=== PATIENT | male | born 1945 | race Caucasian/White ===

== ENCOUNTER → 2020-05-16 | Outpatient (CLI) | payer MEDICARE, BC ==
--- NOTE | 2020-05-16 15:56 | MR ---
EXAMINATION TYPE: MR brain wo con DATE OF EXAM: 05/16/2020 3:47 PM COMPARISON: NONE HISTORY: Memory loss, bilateral hearing loss. FINDINGS: The ventricles, basal cisterns and sulci overlying the cerebral convexities are mildly enlarged. There is evidence of mild periventricular white matter ischemic demyelination. Remote deep white matter insults are also noted. No acute edema is seen on diffusion weighted imaging. There is no evidence for midline shift or mass effect. Acute intracranial hemorrhage or extra-axial collection is not evident. The paranasal sinuses and mastoid air cells are well-aerated. IMPRESSION: Age-related atrophic and chronic small vessel ischemic change. No acute intracranial process at this time.
== END | disposition home or self-care (01) ==
LOC: RADMRIMAIN 14:58
PROVIDERS: ATTEND Family Medicine
DX: I67.82 Cerebral ischemia (principal)
CPT/HCPCS: 70551

== ENCOUNTER → 2022-06-19 | Outpatient (CLI) | payer MEDICARE, BC ==
[2022-06-19 16:14] LABS: Partial Thromboplastin Time 25.3 sec (22.0-30.0); Prothrombin Time 10.7 sec (9.0-12.0)
[2022-06-19 21:05] LABS: C Reactive Protein <0.30 mg/dL (0.00-0.80)
[2022-06-20 08:52] LABS: Protein, Total 6.4 g/dL (6.2-8.2)
[2022-06-20 11:29] LABS: Lyme IgG/IgM 0.12 Index
[2022-06-20 18:21] LABS: Albumin 3.93 g/dL (3.80-4.90); Gamma Globulin 0.63 g/dL (0.70-1.50)
== END | disposition home or self-care (01) ==
LOC: LABWHC1 14:30
PROVIDERS: ATTEND Psychiatry & Neurology Neurology
DX: G90.09 Other idiopathic peripheral autonomic neuropathy (principal); R41.3 Other amnesia; R73.9 Hyperglycemia, unspecified
CPT/HCPCS: 36415; 82607; 82747; 83036; 83090; 84165; 84439; 84443; 85610; 85652; 85730; 86038; 86140; 86618

== ENCOUNTER → 2022-07-11 | Outpatient (CLI) | payer MEDICARE, BC ==
--- NOTE | 2022-07-12 08:21 | MR ---
EXAMINATION TYPE: MR brain wo con DATE OF EXAM: 07/11/2022 COMPARISON: 05/16/2020 HISTORY: 76-year-old male Dementia. TECHNIQUE: Multiplanar, multisequence images of the brain and brainstem were acquired without IV con trast. Diffusion weighted imaging is performed. FINDINGS: No evidence for acute infarction, hemorrhage, mass, mass effect, midline shift, herniation, effacemen t of basal cisterns, or extra-axial fluid collection. The ventricles and sulci are age-appropriate. Mild to moderate generalized supratentorial volume loss . Persistent origin left posterior cerebral artery. Major intracranial flow voids are intact. T2-weighted FLAIR images and T2-weighted images show mild periventricular white matter change in both cerebral hemispheres, unchanged from prior. Midline structures demonstrate normal morphology. The craniocervical junction is normal. There is mild mucosal thickening within the bilateral ethmoid air cells and trace within the right ma xillary sinus. The opacification within the right sphenoid sinus noted. Globes are intact. Ongoing pa rtial opacification of the left mastoid air cells. IMPRESSION: 1. [id number] generalized cerebral atrophy similar to slightly progressed from 2020. Mild burde n of chronic small vessel ischemic disease is similar. 2. No acute intracranial abnormality seen. 3. Moderate chronic ethmoid sinus disease. Correlate for acute on chronic right sphenoid sinusitis. 4. Some fluid remains trapped in the left mastoid air cells. Correlate for any mastoid pain to exclud e mastoiditis.
== END | disposition home or self-care (01) ==
LOC: RADMRIMAIN 11:30
PROVIDERS: ATTEND Psychiatry & Neurology Neurology
DX: I67.82 Cerebral ischemia (principal); J32.2 Chronic ethmoidal sinusitis; G31.9 Degenerative disease of nervous system, unspecified; F03.90 Unspecified dementia, unspecified severity, without behavioral disturbance, psychotic disturbance, mood disturbance, and anxiety
CPT/HCPCS: 70551

== ENCOUNTER → 2022-11-28 | Outpatient (CLI) | payer MEDICARE, BC ==
[2022-11-28 18:07] LABS: ALT 30 U/L (10-49); AST 22 U/L (14-35); Albumin 4.3 d/dL (3.8-4.9); Albumin/Globulin Ratio 2.15 Ratio (1.60-3.17); Alkaline Phosphatase 63 U/L (41-126); BUN/Creat Ratio 11.33 Ratio (12.00-20.00); Blood Urea Nitrogen 10.2 mg/dL (9.0-27.0); Calcium 9.5 mg/dL (8.7-10.3); Carbon Dioxide 27.6 mmol/L (21.6-31.8); Chloride 106 mmol/L (96-109); Chol/HDL Ratio 2.35 Ratio; Glucose 102 mg/dL (70-110); LDL Cholesterol,Calculated 56.8 mg/dL (0.0-131.0); Potassium 4.1 mmol/L (3.5-5.5); Sodium 144 mmol/L (135-145); Total Bilirubin 0.8 mg/dL (0.3-1.2); Total Protein 6.3 d/dL (6.2-8.2); VLDL Calculation 15.46 mg/dL (5.00-40.00)
== END | disposition home or self-care (01) ==
LOC: LABWHC1 09:30
PROVIDERS: ATTEND Internal Medicine Interventional Cardiology
DX: E78.2 Mixed hyperlipidemia (principal)
CPT/HCPCS: 36415; 80053; 80061